=== PATIENT | male | born 1975 | race Caucasian/White ===

== ENCOUNTER 2017-01-11 12:23 | Inpatient (IN) | payer OTHER ==
[~2017-01-11 12:23] MED LIST: CIPRO500 M2 PO; IBUPROFEN200 M2 PO; IBUPROFEN600 M1 PO; LEVAQUIN500 M1 PO; MEDROL4 M1 PO; MULTIVITAM1 TAB.CHEW PO; MULTIVITAMINS1 EAC7 PO; NORCO 5/325 TAB1 TAB PO; OMEPRAZOLE20 M3 PO; OMEPRAZOLE20 M4 PO; PERCOCET 5-3251 EACH PO; VITAMIN B COMP1 EAC1 PO; VITAMIN B-COMP1 EACH PO; VITAMIN C500 M3 PO; VITAMIN D PO; ZOFRAN4 M2 PO
[2017-01-11] MEDS ORDERED: OMEPRAZOLE40 M2 PO (14:57)
[2017-01-11 16:08] LABS: BASO % 0.1 % (0-2); EOS % 0.3 % (0-7); HCT-HEMATOCRIT 34.3 % (36.0-53.5); HGB-HEMOGLOBIN 11.6 gm/dl (13.5-17.0); IMMATURE GRANULOCYTES ABSOLUTE 0.03 tho/cmm (0-0.03); IMMATURE GRANULOCYTES PERCENT 0.2 % (0-0.3); LYMPH % 6.5 % (20-45); LYMPH ABSOLUTE COUNT 0.9 tho/cmm (0.8-4.5); MCH (MEAN CORPUSCULAR HGB) 29.4 pg (28.0-32.0); MCHC MEAN CORPUSCULAR HGB CONC 33.8 % (32.0-36.0); MCV (MEAN CELL VOLUME) 86.8 fl (82.0-96.0); MEAN PLATELET VOLUME 10.8 cmc (9.4-12.4); MONO % 13.2 % (0-12); MONOCYTE ABSOLUTE COUNT 1.7 tho/cmm (0.0-1.2); NEUTROPHIL ABSOLUTE COUNT 10.4 tho/cmm (1.6-8.0); NEUTROPHIL-AUTOMATED 10.4 tho/cmm (1.6-8.0); NEUTROPHILS % 79.7 % (40-80); PLATELET COUNT 148 tho/cmm (150-450); RED BLOOD COUNT 3.95 mil/cmm (4.40-5.70); RED CELL DISTRIBUTION WIDTH 16.5 % (12.4-16.4)
[2017-01-11 16:22] LABS: ALB/GLOB RATIO 0.6 (0.8-2.0); ALBUMIN 1.9 g/dl (3.5-5.0); ALKALINE PHOSPHATASE 213 U/L (33-138); ALT/SGPT 127 U/L (12-78); ANION GAP 10 mmol/L (0-20); AST/SGOT 226 U/L (10-40); BILIRUBIN,DIRECT 4.2 mg/dl (0.0-0.3); BILIRUBIN,INDIRECT 1.3 mg/dL (0.0-1.0); BILIRUBIN,TOTAL 5.5 mg/dl (0.0-1.5); BLOOD UREA NITROGEN 20 mg/dl (6-24); CALCIUM 7.1 mg/dl (8.5-10.5); CARBON DIOXIDE-VENOUS 27 mmol/L (22-32); CHLORIDE 109 mmol/l (96-110); CREATININE 0.99 mg/dl (0.60-1.30); GLUCOSE 132 mg/dL (70-110); POTASSIUM 3.8 mmol/L (3.7-5.1); SODIUM 142 mmol/L (135-145); eGFR VALUE FOR BLACK >90 mL/Min
[2017-01-11 16:39] LABS: INR 1.5 INR (0.9-1.1)
[2017-01-11 16:45] LABS: ESR-ERYTHROCYTE SED RATE 5 mm/hr (0-15)
[2017-01-11 20:21] LABS: IRON BINDING CAPACITY 133 ug/dl (250-450)
[2017-01-11 20:23] LABS: FERRITIN 172 ng/ml (22-388)
[2017-01-11 20:46] LABS: IRON 20 ug/dl (49-181)
[2017-01-12 06:03] LABS: ALB/GLOB RATIO 0.6 (0.8-2.0); ALBUMIN 1.9 g/dl (3.5-5.0); ALKALINE PHOSPHATASE 218 U/L (33-138); ALT/SGPT 125 U/L (12-78); BILIRUBIN,DIRECT 4.4 mg/dl (0.0-0.3); BILIRUBIN,INDIRECT 1.2 mg/dL (0.0-1.0); BILIRUBIN,TOTAL 5.6 mg/dl (0.0-1.5); BLOOD UREA NITROGEN 20 mg/dl (6-24); CALCIUM 7.3 mg/dl (8.5-10.5); CARBON DIOXIDE-VENOUS 24 mmol/L (22-32); CHLORIDE 109 mmol/l (96-110); CREATININE 0.94 mg/dl (0.60-1.30); GLUCOSE 114 mg/dL (70-110); SODIUM 141 mmol/L (135-145); eGFR VALUE FOR BLACK >90 mL/Min
[2017-01-12 06:23] LABS: ANION GAP 12 mmol/L (0-20); AST/SGOT 219 U/L (10-40); POTASSIUM 4.1 mmol/L (3.7-5.1)
[2017-01-12 15:02] LABS: BASO % 0.1 % (0-2); EOS % 0.1 % (0-7); HCT-HEMATOCRIT 35.4 % (36.0-53.5); IMMATURE GRANULOCYTES ABSOLUTE 0.04 tho/cmm (0-0.03); IMMATURE GRANULOCYTES PERCENT 0.3 % (0-0.3); LYMPH % 7.6 % (20-45); MCH (MEAN CORPUSCULAR HGB) 29.6 pg (28.0-32.0); MCHC MEAN CORPUSCULAR HGB CONC 33.9 % (32.0-36.0); MCV (MEAN CELL VOLUME) 87.4 fl (82.0-96.0); MEAN PLATELET VOLUME 10.3 cmc (9.4-12.4); MONO % 12.5 % (0-12); MONOCYTE ABSOLUTE COUNT 1.7 tho/cmm (0.0-1.2); NEUTROPHIL ABSOLUTE COUNT 10.6 tho/cmm (1.6-8.0); NEUTROPHIL-AUTOMATED 10.6 tho/cmm (1.6-8.0); NEUTROPHILS % 79.4 % (40-80); PLATELET COUNT 162 tho/cmm (150-450); RED BLOOD COUNT 4.05 mil/cmm (4.40-5.70); RED CELL DISTRIBUTION WIDTH 17.1 % (12.4-16.4); WHITE BLOOD COUNT 13.4 tho/cmm (4.0-10.0)
[2017-01-12 15:20] LABS: ALB/GLOB RATIO 0.6 (0.8-2.0); ALBUMIN 1.8 g/dl (3.5-5.0); ALKALINE PHOSPHATASE 207 U/L (33-138); ALT/SGPT 132 U/L (12-78); ANION GAP 13 mmol/L (0-20); AST/SGOT 216 U/L (10-40); BILIRUBIN,TOTAL 6.5 mg/dl (0.0-1.5); BLOOD UREA NITROGEN 20 mg/dl (6-24); CALCIUM 7.1 mg/dl (8.5-10.5); CARBON DIOXIDE-VENOUS 23 mmol/L (22-32); CHLORIDE 108 mmol/l (96-110); CREATININE 1.06 mg/dl (0.60-1.30); GLUCOSE 147 mg/dL (70-110); POTASSIUM 4.1 mmol/L (3.7-5.1); SODIUM 140 mmol/L (135-145); eGFR VALUE FOR BLACK >90 mL/Min
[2017-01-13 04:01] LABS: BASO % 0.1 % (0-2); EOS % 1.3 % (0-7); EOSINOPHIL ABSOLUTE COUNT 0.2 tho/cmm (0.0-0.7); HCT-HEMATOCRIT 35.1 % (36.0-53.5); HGB-HEMOGLOBIN 11.9 gm/dl (13.5-17.0); IMMATURE GRANULOCYTES ABSOLUTE 0.04 tho/cmm (0-0.03); IMMATURE GRANULOCYTES PERCENT 0.3 % (0-0.3); LYMPH % 12.1 % (20-45); LYMPH ABSOLUTE COUNT 1.5 tho/cmm (0.8-4.5); MCH (MEAN CORPUSCULAR HGB) 29.7 pg (28.0-32.0); MCHC MEAN CORPUSCULAR HGB CONC 33.9 % (32.0-36.0); MCV (MEAN CELL VOLUME) 87.5 fl (82.0-96.0); MEAN PLATELET VOLUME 10.4 cmc (9.4-12.4); MONO % 12.3 % (0-12); MONOCYTE ABSOLUTE COUNT 1.5 tho/cmm (0.0-1.2); NEUTROPHIL ABSOLUTE COUNT 9.3 tho/cmm (1.6-8.0); NEUTROPHIL-AUTOMATED 9.3 tho/cmm (1.6-8.0); NEUTROPHILS % 73.9 % (40-80); PLATELET COUNT 142 tho/cmm (150-450); RED BLOOD COUNT 4.01 mil/cmm (4.40-5.70); RED CELL DISTRIBUTION WIDTH 17.4 % (12.4-16.4); WHITE BLOOD COUNT 12.6 tho/cmm (4.0-10.0)
[2017-01-13 04:02] LABS: INR 1.6 INR (0.9-1.1); PROTHROMBIN TIME 19.2 SECONDS (9.0-13.6)
[2017-01-13 04:14] LABS: ALB/GLOB RATIO 0.6 (0.8-2.0); ALBUMIN 1.9 g/dl (3.5-5.0); ALKALINE PHOSPHATASE 207 U/L (33-138); ALT/SGPT 127 U/L (12-78); ANION GAP 12 mmol/L (0-20); AST/SGOT 204 U/L (10-40); BILIRUBIN,TOTAL 7.6 mg/dl (0.0-1.5); BLOOD UREA NITROGEN 21 mg/dl (6-24); CALCIUM 7.2 mg/dl (8.5-10.5); CARBON DIOXIDE-VENOUS 25 mmol/L (22-32); CHLORIDE 108 mmol/l (96-110); CREATININE 1.03 mg/dl (0.60-1.30); GLUCOSE 103 mg/dL (70-110); POTASSIUM 3.8 mmol/L (3.7-5.1); SODIUM 141 mmol/L (135-145); eGFR VALUE FOR BLACK >90 mL/Min
[2017-01-14 05:30] LABS: BASO % 0.2 % (0-2); EOS % 0.9 % (0-7); EOSINOPHIL ABSOLUTE COUNT 0.1 tho/cmm (0.0-0.7); HCT-HEMATOCRIT 34.2 % (36.0-53.5); HGB-HEMOGLOBIN 11.7 gm/dl (13.5-17.0); IMMATURE GRANULOCYTES ABSOLUTE 0.05 tho/cmm (0-0.03); IMMATURE GRANULOCYTES PERCENT 0.4 % (0-0.3); LYMPH % 7.3 % (20-45); LYMPH ABSOLUTE COUNT 0.9 tho/cmm (0.8-4.5); MCH (MEAN CORPUSCULAR HGB) 29.7 pg (28.0-32.0); MCHC MEAN CORPUSCULAR HGB CONC 34.2 % (32.0-36.0); MCV (MEAN CELL VOLUME) 86.8 fl (82.0-96.0); MEAN PLATELET VOLUME 10.3 cmc (9.4-12.4); MONO % 13.4 % (0-12); MONOCYTE ABSOLUTE COUNT 1.7 tho/cmm (0.0-1.2); NEUTROPHIL ABSOLUTE COUNT 10.1 tho/cmm (1.6-8.0); NEUTROPHIL-AUTOMATED 10.1 tho/cmm (1.6-8.0); NEUTROPHILS % 77.8 % (40-80); PLATELET COUNT 117 tho/cmm (150-450); RED BLOOD COUNT 3.94 mil/cmm (4.40-5.70); RED CELL DISTRIBUTION WIDTH 17.7 % (12.4-16.4); WHITE BLOOD COUNT 12.9 tho/cmm (4.0-10.0)
[2017-01-14 05:37] LABS: INR 1.7 INR (0.9-1.1); PROTHROMBIN TIME 20.4 SECONDS (9.0-13.6)
[2017-01-14 05:51] LABS: ALB/GLOB RATIO 0.6 (0.8-2.0); ALBUMIN 1.7 g/dl (3.5-5.0); ALKALINE PHOSPHATASE 192 U/L (33-138); ALT/SGPT 120 U/L (12-78); BLOOD UREA NITROGEN 21 mg/dl (6-24); CALCIUM 7.1 mg/dl (8.5-10.5); CARBON DIOXIDE-VENOUS 24 mmol/L (22-32); CHLORIDE 105 mmol/l (96-110); CREATININE 1.03 mg/dl (0.60-1.30); GLUCOSE 115 mg/dL (70-110); SODIUM 137 mmol/L (135-145); eGFR VALUE FOR BLACK >90 mL/Min
[2017-01-14 05:59] LABS: ANION GAP 12 mmol/L (0-20); AST/SGOT 210 U/L (10-40); POTASSIUM 4.1 mmol/L (3.7-5.1)
[2017-01-14] MEDS ORDERED: COLACE100 M1 PO (16:55)
[2017-01-14] MEDS ORDERED: MILK OF MAGNESIA PO (16:57)
[2017-01-14] MEDS ORDERED: SENOKOT8.6 M1 PO (16:58)
[2017-01-14] MEDS ORDERED: MIRALAX17 G2 PO (16:58)
[2017-01-14] MEDS ORDERED: FOLTX TABLET1 EAC1 PO (17:01)
[2017-01-14] MEDS ORDERED: VITAMIN C500 M3 PO (17:04)
[2017-01-14] MEDS ORDERED: ALDACTONE25 M1 PO (17:07)
[2017-01-14] MEDS ORDERED: ATIVAN0.5 M1 PO (17:10)
[2017-01-14] MEDS ORDERED: OXYCODONE HCL5 M1 PO (17:10)
== END 2017-01-14 19:20 | DRG 435 ==
LOC: CARD 12:23 → CAR1 14:15 → 5WF 19:11
PROVIDERS: Nurse Practitioner; Physician Assistant Medical; Radiology Diagnostic Radiology; ADMIT Internal Medicine Hematology & Oncology
PROC: 0FB23ZX Excision of Left Lobe Liver, Percutaneous Approach, Diagnostic (ICD-10-PCS; principal; 2017-01-12)
DX: C78.7 Secondary malignant neoplasm of liver and intrahepatic bile duct (principal); E43 Unspecified severe protein-calorie malnutrition; D68.9 Coagulation defect, unspecified; E66.9 Obesity, unspecified; Z85.820 Personal history of malignant melanoma of skin; K21.9 Gastro-esophageal reflux disease without esophagitis; Z68.30 Body mass index [BMI] 30.0-30.9, adult; R60.0 Localized edema; R51 Headache; Z51.5 Encounter for palliative care; G47.00 Insomnia, unspecified; K59.00 Constipation, unspecified
CPT/HCPCS: A9577; J2250; J2405; J3010